=== PATIENT | female | born 1995 | race Caucasian/White ===

== ENCOUNTER 2019-07-29 11:26 | Emergency (ER) | payer BC, SELFPAY ==
[2019-07-29 11:22] VITALS: BP 144/81; PULSE 82; RESP 16; TEMP 37.1; O2SAT 100
[2019-07-29] MEDS: SODIUM CHLORIDE 0.9% IV 1,000 ML 999 ML IV CONT (11:37)
[2019-07-29 11:54] LABS: Alveolar/Arterial O2 Gradient 51.1 mmHg; Base Excess ABG -2.1 mEq/l (+/-2.0); Carboxyhemoglobin 4.5 % THb (0-2.0); Fractional Inspired Oxygen 21 %; HCO3 ABG 22.4 mEq/l (22.0-26.0); Methemoglobin ABG 0.3 %THb (0-1.5); Oxygen Content ABG 16.5 %vol (16.0-22.0); Oxygen Saturation ABG 87.9 % (95.0-100.0); Oxyhemoglobin 85.8 % THb (90.0-100.0); PCO2 ABG 37.5 mmHg (35.0-45.0); PO2 ABG 53.7 mmHg (80.0-100.0); PO2 FiO2 Ratio Arterial Blood 2.56 %; Reduced Hemoglobin 9.4 %THb (0-5.0); Total Hemoglobin 13.7 g/dL (12.0-18.0); pH ABG 7.394 (7.350-7.450)
[2019-07-29 11:56] LABS: Device ROOM AIR; Modified Allen's Test Pass; Site Drawn RIGHT RADIAL
[2019-07-29 11:58] LABS: Basophils Percent Auto 0.3 % (0.2-1.2); Eosinophils Absolute Auto 0.1 K/mm3 (0-0.3); Eosinophils Percent Auto 1.8 % (0-4.4); Hematocrit 38.1 % (37.0-47.0); Hemoglobin 12.8 g/dL (12.0-15.0); Immature Granulocyte Absolute 0.02 K/mm3 (0.00-0.031); Immature Granulocyte Percent A 0.3 % (0-0.5); Lymphocytes Absolute Auto 1.78 K/mm3 (0.9-3.2); Lymphocytes Percent Auto 24.6 % (18.3-44.2); Mean Corpuscular HGB Conc 33.6 g/dl (32-36); Mean Corpuscular Hemoglobin 32.4 pg (26-34); Mean Corpuscular Volume 96.5 fl (80-100); Mean Platelet Volume 9.7 fl (7.4-10.4); Monocytes Absolute Auto 0.5 K/mm3 (0.1-0.6); Monocytes Percent Auto 6.8 % (2.6-8.5); Neutrophils Absolute Auto 4.8 K/mm3 (1.3-6.7); Neutrophils Percent Auto 66.2 % (45.5-73.1); Platelet Count Result 191 k/mm3 (150-375); Red Blood Count 3.95 M/mm3 (4.2-5.4); Red Cell Distribution Width 12.4 % (11.5-14.5); White Blood Count 7.2 K/mm3 (4.5-10.0)
[2019-07-29 12:11] LABS: Alanine Aminotransferase 15 U/L (4-35); Alkaline Phosphatase 67 U/L (38-126); Aspartate Amino Transferase 19 U/L (14-36); Bilirubin,Total 0.2 mg/dL (0.2-1.3); Blood Urea Nitrogen 11 mg/dL (7-17); Calcium 8.5 mg/dL (8.4-10.2); Carbon Dioxide 24 mmol/L (22-30); Chloride 108 mmol/L (98-107); Estimated CRCL calculation 166 ml/min; Estimated Glomerular Filt Rate > 60; Glucose 87 mg/dL (65-105); Potassium 4.1 mmol/L (3.4-5.0); Sodium 138 mmol/L (137-145)
--- NOTE | 2019-07-29 12:28 | ED.GENADULT ---
HPI - General Adult General Chief complaint: Syncope Stated complaint: syncope Source: patient Mode of arrival: ambulatory Limitations: no limitations History of Present Illness HPI narrative: Patient is a 24-year-old female who presents per EMS from work for evaluation of syncopal episode that occurred just prior to arrival patient was at work in a hot environment she began dizzy and sustained a syncopal episode no injuries were sustained EMS was called out. EMS notes that they found at the facility had a carbon monoxide issue. Patient was removed from the environment and on arrival has no complaints. Patient notes having had a similar type episode a week ago but was not seen. Related Data Home Medications Medication Instructions Recorded Confirmed No Home Medications 07/29/19 07/29/19 Allergies Allergy/AdvReac Type Severity Reaction Status Date / Time No Known Allergies Allergy Verified 07/29/19 11:29 Review of Systems Review of Systems: All systems reviewed & are unremarkable except as noted in HPI and below PMFSH Social History Social History (Updated 07/29/19 @ 12:29 by Yan Morrison PA-C) Smoking status: Current every day smoker Exam Narrative: Exam Narrative: GENERAL: Well-appearing, well-nourished, and in no acute distress. HEAD: Normocephalic, atraumatic. EYES: PERRLA and EOMI. ENT: Nares clear, no rhinorrhea or epistaxis. Mucous membranes moist. Oropharynx without tonsillar hypertrophy exudate or other lesions. Bilateral TMs pearly qureshi nonbulging NECK: Supple. No adenopathy or masses. No carotid bruits or JVD CHEST: Clear to auscultation. No respiratory distress. No wheezes rales or rhonchi HEART: Regular rate and rhythm. No murmur heard. Normal peripheral pulses. ABDOMEN: Soft, nontender, nondistended, normal active bowel sounds. EXTREMITIES: Normal range of motion. No edema. SKIN: Warm, dry, no rash. NEURO: No focal deficits. Alert and oriented x3. PSYCH: Normal mood and affect. Course Course Emergency Course: Patient in the room in no distress aware of case findings treatment plan and diagnosis agreeing to follow-up as directed Vital Signs Vital signs: Vital Signs Temperature 98.8 F 07/29/19 11:22 Pulse Rate 82 07/29/19 11:22 Respiratory Rate 16 07/29/19 11:22 Blood Pressure 144/81 H 07/29/19 11:22 Pulse Oximetry 100 07/29/19 11:22 Temperature 98.8 F 07/29/19 11:22 Pulse Rate 72 07/29/19 12:37 Respiratory Rate 16 07/29/19 11:22 Blood Pressure 122/67 07/29/19 12:37 Pulse Oximetry 100 07/29/19 11:22 Medical Decision Making MDM Narrative Medical decision making narrative: Patient in the room in no distress no high risk changes in the blood work or imaging likely exhaustion vasovagal syncope may be coupled with carbon monoxide exposure. Patient at this time pain-free symptom-free resting comfortably felt appropriate for outpatient reevaluation. Patient hydrated and given medications in the emergency department. Patient provided with reasons to return Vital Signs Vital Signs: Vital Signs Temperature 98.8 F 07/29/19 11:22 Pulse Rate 82 07/29/19 11:22 Respiratory Rate 16 07/29/19 11:22 Blood Pressure 144/81 H 07/29/19 11:22 Pulse Oximetry 100 07/29/19 11:22 Temperature 98.8 F 07/29/19 11:22 Pulse Rate 72 07/29/19 12:37 Respiratory Rate 16 07/29/19 11:22 Blood Pressure 122/67 07/29/19 12:37 Pulse Oximetry 100 07/29/19 11:22 Lab Data Result diagrams: 07/29/19 11:52 07/29/19 11:52 Labs: Lab Results 07/29/19 07/29/19 07/29/19 Range/Units 11:47 11:52 11:52 WBC 7.2 (4.5-10.0) K/mm3 RBC 3.95 L (4.2-5.4) M/mm3 Hgb 12.8 (12.0-15.0) g/dL Hct 38.1 (37.0-47.0) % MCV 96.5 (80-100) fl MCH 32.4 (26-34) pg MCHC 33.6 (32-36) g/dl RDW 12.4 (11.5-14.5) % Plt Count 191 (150-375) k/mm3 MPV 9.7 (7.4-10.4) fl Immature Gran % (Aut
[2019-07-29 12:36] VITALS: BP 108/57; PULSE 83
[2019-07-29 12:36] LABS: Add Urine Microscopic? YES; Appearance Urine Clear (Clear); Bilirubin Urine Negative (Negative); Blood Urine Negative (Negative); Color Urine Yellow (Yellow); Glucose Urine UA Negative (Negative); Ketones Urine Trace mg/dL (Negative); Leukocyte Esterase Ur 1+ LEU/UL (Negative); Mucus Urine Rare /lpf; Nitrate Urine Negative (Negative); Protein Urine Negative (Negative); RBC Urine 0-2 /hpf (0-2); Squamous Epithelial Cell Urine Many /hpf (Few); Urobilinogen Urine Negative mg/dL (<2.0); WBC Urine 0-3 /hpf
[2019-07-29 12:37] VITALS: BP 122/67; BP 123/72; PULSE 72; PULSE 77
[2019-07-29 12:55] LABS: Amphetamine Screen Urine Negative (Negative); Barbiturate Screen Urine Negative (Negative); Benzodiazepines Screen Urine Negative (Negative); Cannabinoid Screen Urine Positive (Negative); Cocaine Screen Urine Negative (Negative); Methadone Screen Urine Negative (Negative); Opiate Screen Urine Negative (Negative); Phencyclidine Screen Urine Negative (Negative)
[2019-07-29 13:08] VITALS: BP 117/69; PULSE 76; RESP 18; O2SAT 100
--- NOTE | 2019-07-29 13:25 | ECG_ITS ---
Measurements Intervals [place] Rate: 76 P: 6 RI: 112 QRS: 75 QRSD: 94 T: -1 QT: 381 QTc: 430 Interpretive Statements SINUS RHYTHM WITH SINUS ARRHYTHMIA WITH SHORT RI INTERVAL MINIMAL Q WAVES- INFERIOR LEADS BORDERLINE ST-T WAVE ABNORMALITY- INFERIOR LEADS BASELINE ARTIFACT- I, II, III, AVR, AVL, AVF BORDERLINE ECG Electronically Signed On 07-29-2019 15:20:18 CDT by Terrance Dang D.O.
== END 2019-07-29 13:10 | disposition home or self-care (01) ==
PROVIDERS: Emergency Medicine Emergency Medical Services; Emergency Provider Emergency Medicine
DX: R55 Syncope and collapse (principal); Z77.29 Contact with and (suspected) exposure to other hazardous substances; F17.210 Nicotine dependence, cigarettes, uncomplicated; R94.31 Abnormal electrocardiogram [ECG] [EKG]
CPT/HCPCS: 36415; 36600; 80053; 80307; 81001; 81025; 82375; 82805; 83050; 85025; 93005; 96360; 99284; J7030